=== PATIENT | male | born 1945 | race Caucasian/White ===

== ENCOUNTER 2017-06-02 05:30 | Observation (INO) | payer MEDICARE, MEDICAID, OTHER ==
[2017-06-02] MEDS ORDERED: Sodium Chloride 0.9% 1,000 ML IV ONE (05:31)
[2017-06-02] MEDS ORDERED: Famotidine 20 MG/2 ML SDV IVPUSH ONE (05:31)
[2017-06-02] MEDS ORDERED: Ondansetron 4 MG/2 ML SDV IVPUSH ONE (05:31)
[2017-06-02] MEDS ORDERED: Sodium Chloride 0.9% 5 ML Syringe FLUSH PRN ×2 (05:31→06:24)
--- NOTE | 2017-06-02 05:37 | EDM.PDOC ---
Addendum entered and electronically signed by Jayro Mccullough PA 06/02/17 06:33 : Please use ER note as admission H and P Original Note: ED HPI GENERAL MEDICAL PROBLEM - General Chief Complaint: Abdominal Pain Stated Complaint: Abdominal pain Time Seen by Provider: 06/02/17 05:30 Source of Information: Reports: Patient History Limitations: Reports: No Limitations - History of Present Illness INITIAL COMMENTS - FREE TEXT/NARRATIVE: 71 YO WM presents to ER with intractable vomiting x 2 hours with generalized abdominal pain. Pt reports he's had these symptoms previously and was told they were due to GERD. Pt denies any chest pain or shortness of breath. Pt denies any recent illnesses. Pt denies any dysuria or urinary frequency. Right Abdominal Pain Score (Numeric/FACES): 5 - Related Data Allergies Allergy/AdvReac Type Severity Reaction Status Date / Time amoxicillin [Amoxicillin] Allergy Nausea Verified 06/02/17 06:00 erythromycin base Allergy Nausea Verified 06/02/17 06:00 Home Meds: Home Meds Celecoxib 200 mg PO BID 01/12/16 [History] Losartan/Hydrochlorothiazide [Losartan-HCTZ 100-12.5 MG] 12.5 - 100 mg PO BEDTIME 01/12/16 [History] Metoprolol Succinate [Toprol XL] 25 mg PO DAILY 01/12/16 [History] Pantoprazole Sodium [Protonix] 40 mg PO DAILY 01/12/16 [History] Ranitidine HCl [Ranitidine] 150 mg PO BID 01/12/16 [History] Past Medical History HEENT History: Reports: Impaired Vision Cardiovascular History: Reports: Hypertension Respiratory History: Reports: None Gastrointestinal History: Reports: GERD Musculoskeletal History: Reports: Arthritis Psychiatric History: Reports: Developmental Delay, Other (See Below) - Infectious Disease History Infectious Disease History: Reports: Chicken Pox - Past Surgical History Musculoskeletal Surgical History: Reports: Other (See Below) Social & Family History - Tobacco Use Smoking Status *Q: Never Smoker Second Hand Smoke Exposure: No - Alcohol Use Days Per Week of Alcohol Use: 0 - Recreational Drug Use Recreational Drug Use: No Drug Use in Last 12 Months: No - Living Situation & Occupation Occupation: Retired ED ROS GENERAL - Review of Systems Review Of Systems: See Below Constitutional: Reports: No Symptoms HEENT: Reports: No Symptoms Respiratory: Reports: No Symptoms Cardiovascular: Reports: No Symptoms Endocrine: Reports: No Symptoms GI/Abdominal: Reports: Abdominal Pain, Nausea, Vomiting : Reports: No Symptoms Musculoskeletal: Reports: No Symptoms Skin: Reports: No Symptoms Neurological: Reports: No Symptoms Psychiatric: Reports: No Symptoms Hematologic/Lymphatic: Reports: No Symptoms Immunologic: Reports: No Symptoms ED EXAM, GI/ABD - Physical Exam Exam: See Below Exam Limited By: No Limitations General Appearance: Alert, WD/WN, No Apparent Distress Ears: Normal External Exam, Normal Canal, Hearing Grossly Normal, Normal TMs Nose: Normal Inspection, Normal Mucosa, No Blood Throat/Mouth: Normal Inspection, Normal Lips, Normal Teeth, Normal Gums, Normal Oropharynx, Normal Voice, No Airway Compromise Head: Atraumatic, Normocephalic Neck: Normal Inspection, Supple, Non-Tender, Full Range of Motion Respiratory/Chest: No Respiratory Distress, Lungs Clear, Normal Breath Sounds, No Accessory Muscle Use, Chest Non-Tender Cardiovascular: Normal Peripheral Pulses, No Edema, No Gallop, No JVD, No Murmur , No Rub, Irregularly Irregular GI/Abdominal Exam: Normal Bowel Sounds, Soft, No Organomegaly, No Abnormal Bruit , Tender (generalized) Back Exam: Normal Inspection, Full Range of Motion, NT Extremities: Normal Inspection, Normal Range of Motion, Non-Tender, Normal Capillary Refill, No Pedal Edema Neurological: Alert, Oriented, CN II-XII Intact, Normal Cognition, Normal Gait, Normal Reflexes, No Motor/Sensory Deficits Psychiatric: Normal Affect, Normal Mood Skin Exam: Warm, Dry, Intact, Normal Color, No Rash Lymphatic: No Adenopathy EKG INTERPRETATION EKG Date: 06/02/17 Time: 06:14 Rhythm: NSR Rate (Beats/Min): 108 [place]: Normal P-Wave: Present QRS: Normal ST-T: Normal QT: Normal Comparison: NA - No Prior EKG Course - Vital Signs Last Recorded V/S: Last Vital Signs Temp 35.9 C 06/02/17 05:50 Pulse 99 06/02/17 05:50 Resp 18 06/02/17 05:50 BP 119/75 06/02/17 05:50 Pulse Ox 90 L 06/02/17 05:50 - Orders/Labs/Meds Orders: Active Orders 24 hr Category Date Time Status Patient Status Manage Transfer [TRANSFER] Routine ADT 06/02/17 06:22 Ordered Patient Status [ADT] Routine ADT 06/02/17 06:24 Ordered EKG Documentation Completion [RC] ASDIRECTED Care 06/02/17 05:33 Active Oxygen Therapy [RC] PRN Care 06/02/17 06:24 Active Peripheral IV Care [RC] . DIRECTED Care 06/02/17 05:32 Active Peripheral IV Care [RC] . DIRECTED Care 06/02/17 06:25 Active Up With Assistance [RC] ASDIRECTED Care 06/02/17 06:24 Active VTE/DVT Education [RC] PER UNIT ROUTINE Care 06/02/17 06:24 Active Vital Signs [RC] Q4H Care 06/02/17 06:24 Active Clear Liquid Diet [DIET] Diet 06/02/17 Breakfast Active Abdomen 1V Upright [CR] Stat Exams 06/02/17 05:31 Ordered CBC WITH AUTO DIFF [HEME] AM Lab 06/03/17 05:11 Ordered COMPREHENSIVE METABOLIC PN,CMP [CHEM] AM Lab 06/03/17 05:11 Ordered UA W/MICROSCOPIC [URIN] Stat Lab 06/02/17 05:31 Uncollected Morphine Med 06/02/17 06:24 Active 2 mg IVPUSH Q2H PRN Ondansetron [Zofran] Med 06/02/17 06:24 Active 4 mg IV Q4H PRN Sodium Chloride 0.9% [Normal Saline] 1,000 ml Med 06/02/17 05:31 Active IV .BOLUS Sodium Chloride 0.9% [Normal Saline] 1,000 ml Med 06/02/17 06:30 Active IV ASDIRECTED Sodium Chloride 0.9% [Syrex Flush] Med 06/02/17 05:31 Active 5 ml FLUSH Q8HR PRN Sodium Chloride 0.9% [Syrex Flush] Med 06/02/17 06:24 Active 5 ml FLUSH Q8HR PRN Peripheral IV Insertion Adult [OM.PC] Routine Oth 06/02/17 05:31 Ordered Peripheral IV Insertion Adult [OM.PC] Routine Oth 06/02/17 06:24 Ordered Resuscitation Status Routine Resus Stat 06/02/17 06:24 Ordered EKG 12 Lead [EK] Routine Ther 06/02/17 05:33 Ordered Medication Orders Sodium Chloride (Normal Saline) 1,000 mls @ 999 mls/hr IV .BOLUS ONE Stop: 06/02/17 06:31 Sodium Chloride (Normal Saline) 1,000 mls @ 125 mls/hr IV ASDIRECTED PATIENCE Morphine Sulfate (Morphine) 2 mg IVPUSH Q2H PRN PRN Reason: Pain (severe 7-10) Ondansetron HCl (Zofran) 4 mg IV Q4H PRN PRN Reason: Nausea/Vomiting Sodium Chloride (Syrex Flush) 5 ml FLUSH Q8HR PRN PRN Reason: Keep Vein Open Sodium Chloride (Syrex Flush) 5 ml FLUSH Q8HR PRN PRN Reason: Keep Vein Open Labs: Laboratory Tests 06/02/17 06/02/17 Range/Units 05:32 05:32 WBC 13.0 H (5.0-10.0) 10^3/uL RBC 5.84 (4.50-6.00) 10^6/uL Hgb 18.0 H (13.0-17.0) g/dL Hct 53.2 H (40.0-52.0) % MCV 91.0 (82.0-92.0) fL MCH 30.8 (27.0-31.0) pg MCHC 33.9 (32.0-36.0) g/dL RDW 13.0 (11.5-14.5) % Plt Count 171 (150-300) 10^3/uL MPV 8.2 (7.4-10.4) fL Neut % (Auto) 93.2 H (50.0-70.0) % Lymph % (Auto) 3.1 L (20.0-40.0) % [place] % (Auto) 3.4 (2.0-8.0) % Eos % (Auto) 0.3 L (1.0-3.0) % Baso % (Auto) 0.0 (0.0-1.0) % Neut # (Auto) 12.2 H (2.5-7.0) 10^3/uL Lymph # (Auto) 0.4 L (1.0-4.0) 10^3/uL [place] # (Auto) 0.4 (0.1-0.8) 10^3/uL Eos # (Auto) 0.0 L (0.1-0.3) 10^3/uL Baso # (Auto) 0.0 (0.0-0.1) 10^3/uL Sodium 141 (136-145) mmol/L Potassium 3.5 (3.3-5.3) mmol/L Chloride 102 (98-115) mmol/L Carbon Dioxide 30.1 (21.0-32.0) mmol/L BUN 16 (6-25) mg/dL Creatinine 0.83 (0.51-1.17) mg/dL Est Cr Clr Drug Dosing 88.20 mL/min Estimated GFR (MDRD) > 60 mL/min Glucose 176 H (70-110) mg/dL Calcium 9.4 (8.7-10.3) mg/dL Total Bilirubin 1.9 H (0.2-1.0) mg/dL AST 16 (15-37) U/L ALT 23 (12-78) U/L Alkaline Phosphatase 77 (46-116) IU/L Total Protein 7.7 (6.4-8.2) g/dL Albumin 3.87 (3.00-4.80) g/dL Lipase 72 L (73-393) U/L Meds: Medications Generic Name Dose Route Start Last Admin Trade Name Freq PRN Reason Stop Dose Admin Sodium Chloride 1,000 mls @ 999 mls/hr 06/02/17 05:31 Normal Saline IV 06/02/17 06:31 .BOLUS ONE Sodium Chloride 1,000 mls @ 125 mls/hr 06/02/17 06:30 Normal Saline IV ASDIRECTED PATIENCE Morphine Sulfate 2 mg 06/02/17 06:24 Morphine IVPUSH Q2H PRN Pain (severe 7-10) Ondansetron HCl 4 mg 06/02/17 06:24 Zofran IV Q4H PRN Nausea/Vomiting Sodium Chloride 5 ml 06/02/17 05:31 Syrex Flush FLUSH Q8HR PRN Keep Vein Open Sodium Chloride 5 ml 06/02/17 06:24 Syrex Flush FLUSH Q8HR PRN Keep Vein Open Discontinued Medications Generic Name Dose Route Start Last Admin Trade Name Freq PRN Reason Stop Dose Admin Famotidine 20 mg 06/02/17 05:31 Pepcid IVPUSH 06/02/17 05:32 ONETIME ONE Morphine Sulfate 4 mg 06/02/17 06:16 Morphine IVPUSH 06/02/17 06:17 ONETIME ONE Ondansetron HCl 4 mg 06/02/17 05:31 Zofran IVPUSH 06/02/17 05:32 ONETIME ONE - Radiology Interpretation Free Text/Narrative:: Abd series- nonspecific bowel gas pattern; NAD Departure - Departure Time of Disposition: 06:29 Disposition: Refer to Observation Condition: Fair Clinical Impression: Vomiting Qualifiers: Vomiting Intractability: unspecified Nausea presence: with nausea Abdominal pain Qualifiers: Abdominal location: generalized Qualified Code(s): R10.84 - Generalized abdominal pain - Discharge Information Forms: ED Department Discharge - My Orders Last 24 Hours: My Active Orders 06/02/17 05:31 Abdomen 1V Upright [CR] Stat UA W/MICROSCOPIC [URIN] Stat Sodium Chloride 0.9% [Normal Saline] 1,000 ml IV .BOLUS Sodium Chloride 0.9% [Syrex Flush] 5 ml FLUSH Q8HR PRN Peripheral IV Insertion Adult [OM.PC] Routine 06/02/17 05:32 Peripheral IV Care [RC] . DIRECTED 06/02/17 05:33 EKG Documentation Completion [RC] ASDIRECTED EKG 12 Lead [EK] Routine 06/02/17 06:22 Patient Status Manage Transfer [TRANSFER] Routine 06/02/17 06:24 Patient Status [ADT] Routine Oxygen Therapy [RC] PRN Up With Assistance [RC] ASDIRECTED VTE/DVT Education [RC] PER UNIT ROUTINE Vital Signs [RC] Q4H Morphine 2 mg IVPUSH Q2H PRN Ondansetron [Zofran] 4 mg IV Q4H PRN Sodium Chloride 0.9% [Syrex Flush] 5 ml FLUSH Q8HR PRN Peripheral IV Insertion Adult [OM.PC] Routine Resuscitation Status Routine 06/02/17 06:25 Peripheral IV Care [RC] . DIRECTED 06/02/17 06:30 Sodium Chloride 0.9% [Normal Saline] 1,000 ml IV ASDIRECTED 06/02/17 Breakfast Clear Liquid Diet [DIET] 06/03/17 05:11 CBC WITH AUTO DIFF [HEME] AM COMPREHENSIVE METABOLIC PN,CMP [CHEM] AM - Assessment/Plan Last 24 Hours: My Active Orders 06/02/17 05:31 Abdomen 1V Upright [CR] Stat UA W/MICROSCOPIC [URIN] Stat Sodium Chloride 0.9% [Normal Saline] 1,000 ml IV .BOLUS Sodium Chloride 0.9% [Syrex Flush] 5 ml FLUSH Q8HR PRN Peripheral IV Insertion Adult [OM.PC] Routine 06/02/17 05:32 Peripheral IV Care [RC] . DIRECTED 06/02/17 05:33 EKG Documentation Completion [RC] ASDIRECTED EKG 12 Lead [EK] Routine 06/02/17 06:22 Patient Status Manage Transfer [TRANSFER] Routine 06/02/17 06:24 Patient Status [ADT] Routine Oxygen Therapy [RC] PRN Up With Assistance [RC] ASDIRECTED VTE/DVT Education [RC] PER UNIT ROUTINE Vital Signs [RC] Q4H Morphine 2 mg IVPUSH Q2H PRN Ondansetron [Zofran] 4 mg IV Q4H PRN Sodium Chloride 0.9% [Syrex Flush] 5 ml FLUSH Q8HR PRN Peripheral IV Insertion Adult [OM.PC] Routine Resuscitation Status Routine 06/02/17 06:25 Peripheral IV Care [RC] . DIRECTED 06/02/17 06:30 Sodium Chloride 0.9% [Normal Saline] 1,000 ml IV ASDIRECTED 06/02/17 Breakfast Clear Liquid Diet [DIET] 06/03/17 05:11 CBC WITH AUTO DIFF [HEME] AM COMPREHENSIVE METABOLIC PN,CMP [CHEM] AM Assessment:: 1, generalized abdominal pain 2. vomiting Plan: 1. admit for 23 hour obs 2. zofran 4mg IV 3. morphine PRN for pain 4. IV fluids 5. PT eval due to inability to ambulate 6. supportive care
[2017-06-02 06:02] LABS: CHLORIDE,CL 102 mmol/L (98-115); SODIUM,NA 141 mmol/L (136-145)
[2017-06-02] MEDS ORDERED: Morphine 4 MG/ML Syringe IVPUSH ONE (06:16)
[2017-06-02] MEDS ORDERED: Morphine 2 MG/ML Syringe IVPUSH PRN (06:24)
[2017-06-02] MEDS ORDERED: Sodium Chloride 0.9% 1,000 ML IV SCH (06:30)
[2017-06-02] MEDS: Sodium Chloride 0.9% 1,000 ML IV SCH ×2 (08:00→16:26)
[2017-06-02] MEDS: Ondansetron 4 MG/2 ML SDV IV PRN ×2 (09:58→17:39)
[2017-06-02] MEDS: Pantoprazole 40 MG Tab.CR PO SCH (11:14)
[2017-06-02] MEDS: Metoprolol Succinate 25 MG Tab.ER PO SCH (11:14)
[2017-06-02] MEDS: Losartan 50 MG Tab PO SCH (11:15)
[2017-06-02] MEDS: Hydrochlorothiazide 12.5 MG Cap PO SCH (11:15)
[2017-06-02] MEDS: Celecoxib 100 MG Cap PO SCH (20:46)
[2017-06-02] MEDS: Aluminum Hydroxide/Magnesium Hydroxide/Simethicone Susp 30 ML Cup PO PRN (20:47)
[2017-06-03] MEDS: Ondansetron 4 MG/2 ML SDV IV PRN ×3 (00:12→20:05)
[2017-06-03] MEDS: Sodium Chloride 0.9% 1,000 ML IV SCH ×2 (00:12→07:51)
[2017-06-03] MEDS: Pantoprazole 40 MG Tab.CR PO SCH ×2 (06:01→17:32)
--- NOTE | 2017-06-03 08:06 | PN ---
06/02/2017PATIENT NAME: DANETTE COLEMAN This is a 71-year-old white male, who presented to the emergency room early this morning with intractable vomiting x2 hours with generalized abdominal pain. He has had these symptoms in the past and has been told that they were related to gastroesophageal reflux disease. The patient was admitted for observation and IV fluids. He is receiving normal saline at 100 mL/h. He has been treated with Zofran 4 mg IV with some relief. He is also receiving morphine for pain. 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 Pertinent lab data from the emergency room shows a white count of 13,000, hemoglobin and hematocrit 18 and 53.2 respectively. Chemistry profile was normal with the exception of elevated lipase of 72, total bilirubin of 1.9, and glucose of 176. BUN and creatinine were normal with a GFR over 60. UA showed greater than 160 ketones and some occult blood. Etiology unclear. PHYSICAL EXAMINATION: VITAL SIGNS: Temp is 97.7, pulse 101, respirations 14, blood pressure 136/78, O2 saturation is 92% on room air. SKIN: Warm and dry to touch. HEART AND LUNGS: Normal. ABDOMEN: He does have a distended obese abdomen with a large abdominal mass question hernia. EXTREMITIES: No pedal edema. IMPRESSION: Intractable vomiting. He will be treated with IV fluids, given antiemetics and pain medication. If he has improved by tomorrow, he could possibly be discharged back home. I have discussed my findings with Dr. Aida Jay, who was previously aware of the patient's admission and she agrees. /[id number]/MODL
[2017-06-03 08:08] LABS: CHLORIDE,CL 105 mmol/L (98-115); SODIUM,NA 142 mmol/L (136-145)
[2017-06-03] MEDS ORDERED: GI Cocktail 45 ML BOTTLE PO ONE (08:19)
[2017-06-03] MEDS ORDERED: Sodium Chloride 0.9% 5 ML Syringe FLUSH PRN (08:19)
--- NOTE | 2017-06-03 08:26 | PCM.PN ---
- General Info Date of Service: 06/03/17 Admission Dx/Problem (Free Text): Abdominal pain with vomiting. - Review of Systems Systems Review Comment:: Eder is seen today on hospital rounds. He is in observation status having been admitted yesterday morning for abdominal pain with nausea and vomiting. He believes this is all related to his acid reflux. He feels better this morning. He has been on clear liquids and would like to advance his diet. He has no diarrhea. He still has some mild abdominal pain. He has been "walking slowly" around but is getting around with a walker. He has not yet been evaluated by PT. - Patient Data Vitals - most recent: Last Vital Signs Temp 99.6 F 06/03/17 06:40 Pulse 82 06/03/17 06:40 Resp 24 H 06/03/17 06:40 BP 119/78 06/03/17 06:40 Pulse Ox 90 L 06/03/17 06:40 Weight - most recent: 292 lb 12.8 oz I&O - last 24 hours: Intake & Output 06/02/17 06/03/17 06/03/17 22:59 06:59 14:59 Intake Total 1749 150 Output Total 250 200 Balance 1499 -50 Lab Results last 24 hrs: Laboratory Results - last 24 hr 06/03/17 06/03/17 Range/Units 07:26 07:26 WBC 6.1 (5.0-10.0) 10^3/uL RBC 5.31 (4.50-6.00) 10^6/uL Hgb 16.4 (13.0-17.0) g/dL Hct 48.1 (40.0-52.0) % MCV 90.7 (82.0-92.0) fL MCH 30.8 (27.0-31.0) pg MCHC 34.0 (32.0-36.0) g/dL RDW 13.2 (11.5-14.5) % Plt Count 179 (150-300) 10^3/uL MPV 8.2 (7.4-10.4) fL Neut % (Auto) 75.6 H (50.0-70.0) % Lymph % (Auto) 6.9 L (20.0-40.0) % [place] % (Auto) 15.0 H (2.0-8.0) % Eos % (Auto) 2.0 (1.0-3.0) % Baso % (Auto) 0.5 (0.0-1.0) % Neut # (Auto) 4.7 (2.5-7.0) 10^3/uL Lymph # (Auto) 0.4 L (1.0-4.0) 10^3/uL [place] # (Auto) 0.9 H (0.1-0.8) 10^3/uL Eos # (Auto) 0.1 (0.1-0.3) 10^3/uL Baso # (Auto) 0.0 (0.0-0.1) 10^3/uL Sodium 142 (136-145) mmol/L Potassium 3.6 (3.3-5.3) mmol/L Chloride 105 (98-115) mmol/L Carbon Dioxide 32.5 H (21.0-32.0) mmol/L BUN 13 (6-25) mg/dL Creatinine 0.84 (0.51-1.17) mg/dL Est Cr Clr Drug Dosing 87.15 mL/min Estimated GFR (MDRD) > 60 mL/min Glucose 122 H (70-110) mg/dL Calcium 8.0 L (8.7-10.3) mg/dL Total Bilirubin 2.1 H (0.2-1.0) mg/dL AST 12 L (15-37) U/L ALT 24 (12-78) U/L Alkaline Phosphatase 56 (46-116) IU/L Total Protein 6.4 (6.4-8.2) g/dL Albumin 3.08 (3.00-4.80) g/dL Med Orders - Current: Current Medications Al Hydroxide/Mg Hydroxide (Mag-Al Plus) 30 ml PO QID PRN PRN Reason: Heartburn Last Admin: 06/02/17 20:47 Dose: 30 ml Al Hydroxide/Mg Hydroxide (Gi Cocktail) 45 ml PO ONETIME ONE Stop: 06/03/17 08:20 Celecoxib (Celebrex) 200 mg PO BID PATIENCE Last Admin: 06/02/17 20:46 Dose: 200 mg Hydrochlorothiazide (Hydrochlorothiazide) 12.5 mg PO DAILY PATIENCE Last Admin: 06/02/17 11:15 Dose: 12.5 mg Losartan Potassium (Cozaar) 100 mg PO DAILY [facility] Last Admin: 06/02/17 11:15 Dose: 100 mg Metoprolol Succinate (Toprol Xl) 25 mg PO DAILY [facility] Last Admin: 06/02/17 11:14 Dose: 25 mg Morphine Sulfate (Morphine) 2 mg IVPUSH Q2H PRN PRN Reason: Pain (severe 7-10) Ondansetron HCl (Zofran) 4 mg IV Q4H PRN PRN Reason: Nausea/Vomiting Last Admin: 06/03/17 05:59 Dose: 4 mg Pantoprazole Sodium (Protonix) 40 mg PO ACBREAKFAST [facility] Last Admin: 06/03/17 06:01 Dose: 40 mg Ranitidine HCl (Zantac) 150 mg PO BIDAC [facility] Last Admin: 06/03/17 05:59 Dose: 150 mg Sodium Chloride (Syrex Flush) 5 ml FLUSH Q8HR PRN PRN Reason: Keep Vein Open Discontinued Medications Famotidine (Pepcid) 20 mg IVPUSH ONETIME ONE Stop: 06/02/17 05:32 Last Admin: 06/02/17 06:00 Dose: 20 mg Sodium Chloride (Normal Saline) 1,000 mls @ 999 mls/hr IV .BOLUS ONE Stop: 06/02/17 06:31 Last Admin: 06/02/17 06:00 Dose: 999 mls/hr Sodium Chloride (Normal Saline) 1,000 mls @ 125 mls/hr IV ASDIRECTED [facility] Sodium Chloride (Normal Saline) 1,000 mls @ 125 mls/hr IV ASDIRECTED [facility] Last Admin: 06/03/17 07:51 Dose: 125 mls/hr Morphine Sulfate (Morphine) 4 mg IVPUSH ONETIME ONE Stop: 06/02/17 06:17 Last Admin: 06/02/17 06:20 Dose: 4 mg Ondansetron HCl (Zofran) 4 mg IVPUSH ONETIME ONE Stop: 06/02/17 05:32 Last Admin: 06/02/17 05:45 Dose: 4 mg Sodium Chloride (Syrex Flush) 5 ml FLUSH Q8HR PRN PRN Reason: Keep Vein Open Sodium Chloride (Syrex Flush) 5 ml FLUSH Q8HR PRN PRN Reason: Keep Vein Open - Exam General: alert, oriented, cooperative, no acute distress Lungs: Clear to Auscultation, Normal Respiratory Effort Cardiovascular: Regular Rate, Regular Rhythm, No Murmurs GI/Abdominal Exam: Normal Bowel Sounds Extremities: No Pedal Edema - Problem List & Annotations (1) Acid reflux SNOMED Code(s): 333861331 Code(s): K21.9 - GASTRO-ESOPHAGEAL REFLUX DISEASE WITHOUT ESOPHAGITIS Status: Acute Current Visit: Yes (2) Abdominal pain SNOMED Code(s): 89984268 Code(s): R10.9 - UNSPECIFIED ABDOMINAL PAIN Status: Acute Current Visit: Yes Qualifiers: Abdominal location: generalized Qualified Code(s): R10.84 - Generalized abdominal pain (3) Vomiting SNOMED Code(s): 680331020 Code(s): R11.10 - VOMITING, UNSPECIFIED Status: Acute Current Visit: Yes Qualifiers: Vomiting Intractability: unspecified Nausea presence: with nausea (4) Weakness of both legs SNOMED Code(s): 4748087 Code(s): M62.81 - MUSCLE WEAKNESS (GENERALIZED) Status: Acute Current Visit: No - Problem List Review Problem List Initiated/Reviewed/Updated: Yes - My Orders Last 24 Hours: My Active Orders 06/02/17 10:44 PT Evaluation and Treatment [CONS] Routine 06/02/17 11:00 Hydrochlorothiazide 12.5 mg PO DAILY Losartan [Cozaar] 100 mg PO DAILY Metoprolol Succinate [Toprol XL] 25 mg PO DAILY 06/02/17 11:30 Pantoprazole [ProTONIX] 40 mg PO ACBREAKFAST Ranitidine [Zantac] 150 mg PO BIDAC 06/02/17 19:25 Alum Hydrox/Mag Hydrox/Simeth [Mag-Al Plus] 30 ml PO QID PRN 06/02/17 21:00 Celecoxib [CeleBREX] 200 mg PO BID 06/03/17 08:19 Chest 2V [CR] Routine GI Cocktail 45 ml PO ONETIME ONE Sodium Chloride 0.9% [Syrex Flush] 5 ml FLUSH Q8HR PRN Convert IV to Saline Lock [OM.PC] Routine 06/03/17 Lunch Regular Diet [DIET] - Plan Plan:: 1. GI cocktail today to see if this helps. 2. Advance diet to regular. 3. PT eval and treat. 4. Anticipate one additional day in the hospital with probable discharge to home tomorrow.
[2017-06-03] MEDS: Celecoxib 100 MG Cap PO SCH (08:53)
[2017-06-03] MEDS: Losartan 50 MG Tab PO SCH (08:53)
[2017-06-03] MEDS: Hydrochlorothiazide 12.5 MG Cap PO SCH (08:54)
[2017-06-03] MEDS: Metoprolol Succinate 25 MG Tab.ER PO SCH (08:54)
[2017-06-03] MEDS: Acetaminophen 500 MG Tab PO PRN (10:51)
[2017-06-03] MEDS: Aluminum Hydroxide/Magnesium Hydroxide/Simethicone Susp 30 ML Cup PO PRN (14:55)
[2017-06-04] MEDS: Acetaminophen 500 MG Tab PO PRN (02:53)
[2017-06-04] MEDS: Pantoprazole 40 MG Tab.CR PO SCH (06:26)
[2017-06-04 06:59] VITALS: BP 118/72
[2017-06-04] MEDS ORDERED: Magnesium Hydroxide 400 MG/5 ML Susp 30 ML Cup PO PRN (07:30)
[2017-06-04] MEDS: Aluminum Hydroxide/Magnesium Hydroxide/Simethicone Susp 30 ML Cup PO PRN (08:28)
[2017-06-04] MEDS: Losartan 50 MG Tab PO SCH (08:30)
[2017-06-04] MEDS: Metoprolol Succinate 25 MG Tab.ER PO SCH (08:30)
[2017-06-04] MEDS: Hydrochlorothiazide 12.5 MG Cap PO SCH (08:31)
[2017-06-04 08:43] LABS: CHLORIDE,CL 103 mmol/L (98-115); SODIUM,NA 139 mmol/L (136-145)
[2017-06-04] MEDS ORDERED: Celecoxib 100 MG Cap PO SCH (09:00)
--- NOTE | 2017-06-04 09:42 | PCM.DCSUM1 ---
Discharge Summary - Hospital Course Free Text/Narrative:: Eder is being discharged from observation today. He was admitted on 06/02/17 with abdominal pain and vomiting. CT abdomen/pelvis was negative with the exception of a known abdominal wall mass (present for many years, has been worked up and benign) and question of a small pleural effusion. CXR was done and confirmed small right pleural effusion, patient is asymptomatic from this. Eder felt that his symptoms were his acid reflux. He was given a GI cocktail which did not help. His protonix was increased to 40 mg PO BID from one daily and his celebrex was changed from 200 mg PO BID to 200 mg PO once daily to help minimize stomach issues. He has been passing gas as well as having had bowel movements. He was noted to have elevated BG on fasting labs and an A1C was done which was 5.1. He also had a troponin checked to be sure this was not cardiac related and this was negative. Eder does not want to go home. He states "I just don't feel well" but he really enjoys the care he gets here. He was asking if he could have home health but PT momolamar was consistent with independent cares and he does not qualify. He asked if he could have someone come in and give him a bath "for a few weeks" but he was counseled he does not need this service due to his independence with cares. He also stated that he talked with the president of our hospital about finding funding to build him a "handicap ramp". I am unaware of this. Eder will be discharged to home with the medication changes noted above. Recommend follow-up in the clinic in 2 weeks. He had some ketonuria on his admission UA. This should be repeated as an outpatient. He was counseled about a diet that avoids triggering stomach acid. - Discharge Data Discharge Date: 06/04/17 Discharge Disposition: Home, Self-Care 01 Condition: Good - Discharge Diagnosis/Problem(s) (1) Acid reflux SNOMED Code(s): 239086852 ICD Code: K21.9 - GASTRO-ESOPHAGEAL REFLUX DISEASE WITHOUT ESOPHAGITIS Status: Acute Current Visit: Yes (2) Abdominal pain SNOMED Code(s): 21449569 ICD Code: R10.9 - UNSPECIFIED ABDOMINAL PAIN Status: Acute Current Visit : Yes Qualifiers: Abdominal location: generalized Qualified Code(s): R10.84 - Generalized abdominal pain (3) Vomiting SNOMED Code(s): 163228014 ICD Code: R11.10 - VOMITING, UNSPECIFIED Status: Acute Current Visit: Yes Qualifiers: Vomiting Intractability: unspecified Nausea presence: with nausea (4) Weakness of both legs SNOMED Code(s): 3778151 ICD Code: M62.81 - MUSCLE WEAKNESS (GENERALIZED) Status: Acute Current Visit: No - Patient Summary/Data Consults: Consultations 06/02/17 10:44 PT Evaluation and Treatment [CONS] Routine - Patient Instructions Diet: Regular Diet as Tolerated Activity: As Tolerated, Rest and Relax Today Showering/Bathing: May Shower Notify Provider of: Nausea and/or Vomiting - Discharge Plan Prescriptions/Med Rec: Pantoprazole [ProTONIX] 40 mg PO BIDAC 30 Days Home Medications: Home Meds Losartan/Hydrochlorothiazide [Losartan-HCTZ 100-12.5 MG] 1 tab PO DAILY [History] Metoprolol Succinate [Toprol XL] 25 mg PO DAILY 01/12/16 [History] Ranitidine HCl [Ranitidine] 150 mg PO BID 01/12/16 [History] Celecoxib [CeleBREX] 200 mg PO DAILY cap 06/04/17 [Rx] Pantoprazole [ProTONIX] 40 mg PO BIDAC 30 Days 06/04/17 [Rx] Referrals: Aida Dunacn MD [Primary Care Provider] - - Discharge Summary/Plan Comment DC Time >30 min.: No - General Info Date of Service: 06/04/17 Admission Dx/Problem (Free Text: Abdominal pain with vomiting. - Review of Systems Systems Review Comment: 10 point ROS obtained, all pertinent positives are listed in the HPI, all other systems are negative. - Patient Data Vitals - Most Recent: Last Vital Signs Temp 98.1 F 06/04/17 06:58 Pulse 79 06/04/17 08:30 Resp 20 06/04/17 06:58 BP 118/72 06/04/17 08:30 Pulse Ox 92 L 06/04/17 06:58 Weight - Most Recent: 292 lb 12.8 oz I&O - Last 24 hours: Intake & Output 06/03/17 06/04/17 06/04/17 22:59 06:59 14:59 Intake Total 320 250 Output Total 200 400 Balance 120 -150 Lab Results - Last 24 hrs: Laboratory Results - last 24 hr 06/03/17 06/04/17 06/04/17 Range/Units 14:30 08:10 08:10 WBC 4.0 L (5.0-10.0) 10^3/uL RBC 5.20 (4.50-6.00) 10^6/uL Hgb 15.8 (13.0-17.0) g/dL Hct 46.2 (40.0-52.0) % MCV 89.0 (82.0-92.0) fL MCH 30.4 (27.0-31.0) pg MCHC 34.2 (32.0-36.0) g/dL RDW 12.9 (11.5-14.5) % Plt Count 183 (150-300) 10^3/uL MPV 8.2 (7.4-10.4) fL Neut % (Auto) 62.0 (50.0-70.0) % Lymph % (Auto) 13.0 L (20.0-40.0) % Story % (Auto) 20.8 H (2.0-8.0) % Eos % (Auto) 3.5 H (1.0-3.0) % Baso % (Auto) 0.7 (0.0-1.0) % Neut # (Auto) 2.6 (2.5-7.0) 10^3/uL Lymph # (Auto) 0.5 L (1.0-4.0) 10^3/uL Story # (Auto) 0.8 (0.1-0.8) 10^3/uL Eos # (Auto) 0.1 (0.1-0.3) 10^3/uL Baso # (Auto) 0.0 (0.0-0.1) 10^3/uL Sodium 139 (136-145) mmol/L Potassium 3.7 (3.3-5.3) mmol/L Chloride 103 (98-115) mmol/L Carbon Dioxide 29.5 (21.0-32.0) mmol/L BUN 15 (6-25) mg/dL Creatinine 0.85 (0.51-1.17) mg/dL Est Cr Clr Drug Dosing 86.13 mL/min Estimated GFR (MDRD) > 60 mL/min Glucose 125 H (70-110) mg/dL Hemoglobin A1c 5.1 (4.3-5.7) % Calcium 8.1 L (8.7-10.3) mg/dL Troponin I 0.04 (0.00-0.070) ng/mL Med Orders - Current: Current Medications Acetaminophen (Tylenol Extra Strength) 500 mg PO Q6H PRN PRN Reason: Pain Last Admin: 06/04/17 02:53 Dose: 500 mg Al Hydroxide/Mg Hydroxide (Mag-Al Plus) 30 ml PO QID PRN PRN Reason: Heartburn Last Admin: 06/04/17 08:28 Dose: 30 ml Celecoxib (Celebrex) 200 mg PO DAILY [facility] Last Admin: 06/04/17 08:30 Dose: 200 mg Hydrochlorothiazide (Hydrochlorothiazide) 12.5 mg PO DAILY [facility] Last Admin: 06/04/17 08:31 Dose: 12.5 mg Losartan Potassium (Cozaar) 100 mg PO DAILY [facility] Last Admin: 06/04/17 08:30 Dose: 100 mg Magnesium Hydroxide (Milk Of Magnesia) 30 ml PO DAILY PRN PRN Reason: Constipation Last Admin: 06/04/17 08:28 Dose: 30 ml Metoprolol Succinate (Toprol Xl) 25 mg PO DAILY [facility] Last Admin: 06/04/17 08:30 Dose: 25 mg Ondansetron HCl (Zofran) 4 mg IV Q4H PRN PRN Reason: Nausea/Vomiting Last Admin: 06/03/17 20:05 Dose: 4 mg Pantoprazole Sodium (Protonix) 40 mg PO BIDAC [facility] Last Admin: 06/04/17 06:26 Dose: 40 mg Ranitidine HCl (Zantac) 150 mg PO BIDAC [facility] Last Admin: 06/04/17 06:26 Dose: 150 mg Sodium Chloride (Syrex Flush) 5 ml FLUSH Q8HR PRN PRN Reason: Keep Vein Open Last Admin: 06/03/17 20:05 Dose: 5 ml Discontinued Medications Al Hydroxide/Mg Hydroxide (Gi Cocktail) 45 ml PO ONETIME ONE Stop: 06/03/17 08:20 Last Admin: 06/03/17 08:55 Dose: 45 ml Celecoxib (Celebrex) 200 mg PO BID [facility] Last Admin: 06/03/17 08:53 Dose: 200 mg Famotidine (Pepcid) 20 mg IVPUSH ONETIME ONE Stop: 06/02/17 05:32 Last Admin: 06/02/17 06:00 Dose: 20 mg Sodium Chloride (Normal Saline) 1,000 mls @ 999 mls/hr IV .BOLUS ONE Stop: 06/02/17 06:31 Last Admin: 06/02/17 06:00 Dose: 999 mls/hr Sodium Chloride (Normal Saline) 1,000 mls @ 125 mls/hr IV ASDIRECTED PATIENCE Sodium Chloride (Normal Saline) 1,000 mls @ 125 mls/hr IV ASDIRECTED [facility] Last Admin: 06/03/17 07:51 Dose: 125 mls/hr Morphine Sulfate (Morphine) 4 mg IVPUSH ONETIME ONE Stop: 06/02/17 06:17 Last Admin: 06/02/17 06:20 Dose: 4 mg Morphine Sulfate (Morphine) 2 mg IVPUSH Q2H PRN PRN Reason: Pain (severe 7-10) Ondansetron HCl (Zofran) 4 mg IVPUSH ONETIME ONE Stop: 06/02/17 05:32 Last Admin: 06/02/17 05:45 Dose: 4 mg Pantoprazole Sodium (Protonix) 40 mg PO ACBREAKFAST [facility] Last Admin: 06/03/17 06:01 Dose: 40 mg Sodium Chloride (Syrex Flush) 5 ml FLUSH Q8HR PRN PRN Reason: Keep Vein Open Sodium Chloride (Syrex Flush) 5 ml FLUSH Q8HR PRN PRN Reason: Keep Vein Open - Exam General: Reports: alert, oriented, cooperative, no acute distress Lungs: Reports: Clear to Auscultation, Normal Respiratory Effort Cardiovascular: Reports: Regular Rate, Regular Rhythm, No Murmurs GI/Abdominal Exam: Normal Bowel Sounds, Soft, Non-Tender, Other (Right sided abdominal mass, consistent with previous abdominal examinations. Soft.) Extremities: No Pedal Edema *Q Meaningful Use (DIS) - VTE *Q VTE Criteria *Q: - Stroke *Q Stroke Criteria *Q: - AMI *Q AMI Criteria *Q:
[2017-06-04] MEDS ORDERED: Ondansetron 4 MG Tab.DIS PO ONE (11:59)
== END 2017-06-04 16:10 | disposition home or self-care (01) ==
LOC: KA.ED 05:30 → KA.MS 07:15
PROVIDERS: ADMIT Physician Assistant Medical; ATTEND Internal Medicine
DX: K21.9 Gastro-esophageal reflux disease without esophagitis (principal); R10.84 Generalized abdominal pain; R11.10 Vomiting, unspecified; M62.81 Muscle weakness (generalized); I10 Essential (primary) hypertension; Z88.1 Allergy status to other antibiotic agents; Z79.899 Other long term (current) drug therapy
CPT/HCPCS: 36415; 71020; 74000; 80048; 80053; 81001; 83036; 83690; 84484; 85025; 96361; 96374; 96375; 97162; 99285; A9270; J2270; J2405; J7030; 93005; 96376; 99220; G0378; S0028

== ENCOUNTER 2017-07-06 05:14 | Emergency (ER) | payer MEDICARE, MEDICAID, OTHER ==
[2017-07-06] MEDS ORDERED: Ondansetron 4 MG Tab.DIS PO ONE (05:26)
[2017-07-06] MEDS ORDERED: GI Cocktail 45 ML BOTTLE PO ONE (05:26)
[2017-07-06] MEDS ORDERED: Ondansetron 4 MG Tab.DIS ONE (05:28)
[2017-07-06] MEDS ORDERED: GI Cocktail 45 ML BOTTLE ONE (05:29)
[2017-07-06 05:37] VITALS: BP 121/76
[2017-07-06] MEDS ORDERED: Metoclopramide 10 MG/2 ML SDV IM ONE (05:59)
--- NOTE | 2017-07-06 06:05 | EDM.PDOC ---
ED HPI GENERAL MEDICAL PROBLEM - General Chief Complaint: General Stated Complaint: nausea/ reflux Time Seen by Provider: 07/06/17 05:55 Source of Information: Reports: Patient, EMS Notes Reviewed History Limitations: Reports: No Limitations - History of Present Illness INITIAL COMMENTS - FREE TEXT/NARRATIVE: PT STATES HE WOKE UP AT 0300 TODAY WITH ACID REFLUX AND ABDOMINAL PAIN/BURNING. RECENT H/O SAME ONE MONTH AGO AND WAS ADMITTED. WORK UP WAS NEGATIVE. CURRENTLY ON 2 ANTACIDS AND TAKES BOTH 2 X PER DAY. HAD [employer]IX [employer] DINNER AT 1800 AND ATE POP TART JUST PRIOR TO BEDTIME AT 2200. DENIES CP, SOB, FEVER, BOWEL CHANGES , BLOOD IN STOOL, DYSURIA, OR TESTICULAR PAIN. Onset: Today Onset Date: 07/06/17 Onset Time: 03:00 Duration: Improving Location: Reports: Abdomen Quality: Reports: Burning Severity: Mild Improves with: Reports: None Worsens with: Reports: None Associated Symptoms: Reports: No Other Symptoms Treatments JINGLE WRITER: Reports: Other Medication(s) (PEPCID) - Related Data Allergies Allergy/AdvReac Type Severity Reaction Status Date / Time amoxicillin [Amoxicillin] Allergy Nausea Verified 06/02/17 06:00 erythromycin base Allergy Nausea Verified 06/02/17 06:00 Home Meds: Home Meds Losartan/Hydrochlorothiazide [Losartan-HCTZ 100-12.5 MG] 1 tab PO DAILY [History] Metoprolol Succinate [Toprol XL] 25 mg PO DAILY 01/12/16 [History] Ranitidine HCl [Ranitidine] 150 mg PO BID 01/12/16 [History] Celecoxib [CeleBREX] 200 mg PO DAILY cap 06/04/17 [Rx] Pantoprazole [ProTONIX] 40 mg PO BIDAC 30 Days 06/04/17 [Rx] Past Medical History HEENT History: Reports: Hard of Hearing, Impaired Vision Cardiovascular History: Reports: Hypertension Respiratory History: Reports: None Gastrointestinal History: Reports: Gastritis, GERD, Other (See Below) Other Gastrointestinal History: large abdominal hernia Genitourinary History: Reports: Urinary Incontinence Musculoskeletal History: Reports: Arthritis Neurological History: Reports: Brain Injury Psychiatric History: Reports: Developmental Delay - Infectious Disease History Infectious Disease History: Reports: Chicken Pox - Past Surgical History GI Surgical History: Reports: Cholecystectomy Musculoskeletal Surgical History: Reports: Other (See Below) Other Musculoskeletal Surgeries/Procedures:: lef fracture Social & Family History - Tobacco Use Smoking Status *Q: Never Smoker Second Hand Smoke Exposure: No - Caffeine Use Caffeine Use: Reports: None - Alcohol Use Days Per Week of Alcohol Use: 0 - Recreational Drug Use Recreational Drug Use: No Drug Use in Last 12 Months: No - Living Situation & Occupation Occupation: Retired ED ROS GENERAL - Review of Systems Review Of Systems: ROS reveals no pertinent complaints other than HPI. Constitutional: Reports: No Symptoms HEENT: Reports: No Symptoms Respiratory: Reports: No Symptoms Cardiovascular: Reports: No Symptoms Endocrine: Reports: No Symptoms GI/Abdominal: Reports: Abdominal Pain : Reports: No Symptoms Musculoskeletal: Reports: No Symptoms Skin: Reports: No Symptoms Neurological: Reports: No Symptoms Psychiatric: Reports: No Symptoms Hematologic/Lymphatic: Reports: No Symptoms Immunologic: Reports: No Symptoms ED EXAM, GENERAL - Physical Exam Exam: See Below Exam Limited By: No Limitations General Appearance: Alert, WD/WN, No Apparent Distress Nose: Normal Inspection, Normal Mucosa, No Blood Throat/Mouth: Normal Inspection, Normal Oropharynx, No Airway Compromise Head: Atraumatic, Normocephalic Neck: Normal Inspection, Supple, Non-Tender Respiratory/Chest: No Respiratory Distress, Lungs Clear, Normal Breath Sounds, No Accessory Muscle Use, Chest Non-Tender Cardiovascular: Regular Rate, Rhythm, No Murmur GI/Abdominal: Normal Bowel Sounds, Soft, Non-Tender, Other (OBESE). No: Guarding, Rigid, Rebound, Abnormal Bowel Sounds, Hernia Back Exam: Normal Inspection. No: CVA Tenderness (L), CVA Tenderness (R) Extremities: Normal Inspection, No Pedal Edema Neurological: Alert, Oriented, Normal Cognition Psychiatric: Normal Affect, Normal Mood Skin Exam: Warm, Dry, Intact, Normal Color, No Rash Course - Vital Signs Last Recorded V/S: Last Vital Signs Temp 96.9 F 07/06/17 05:33 Pulse 82 07/06/17 05:33 Resp 16 07/06/17 05:33 BP 121/76 07/06/17 05:33 Pulse Ox 90 L 07/06/17 05:33 - Orders/Labs/Meds Meds: Medications Discontinued Medications Generic Name Dose Route Start Last Admin Trade Name Freq PRN Reason Stop Dose Admin Al Hydroxide/Mg Hydroxide 45 ml 07/06/17 05:26 07/06/17 05:51 Gi Cocktail PO 07/06/17 05:27 45 ml ONETIME ONE Administration Al Hydroxide/Mg Hydroxide Confirm 07/06/17 05:29 07/06/17 05:52 Gi Cocktail Administered 07/06/17 05:30 Not Given Dose 50 ml .ROUTE .STK-MED ONE Ondansetron HCl 4 mg 07/06/17 05:26 07/06/17 05:52 Zofran Odt PO 07/06/17 05:27 4 mg ONETIME ONE Administration Ondansetron HCl Confirm 07/06/17 05:28 07/06/17 05:52 Zofran Odt Administered 07/06/17 05:29 Not Given Dose 4 mg .ROUTE .STK-MED ONE - Re-Assessments/Exams Free Text/Narrative Re-Assessment/Exam: 07/06/17 06:40 PT AFEBRILE, NONTOXIC APPEARING, VSS, NO DISCOMFORT. WHEN SUGGESTED DISCHARGE ASKED TO BE ADMITTED FOR ONE NIGHT. DISCUSSED IN DEPTH TO HIM AND THAT HE WOULD BE ABLE TO GO HOME WITH MEDICATION AND F/U WITH DR CHRISTENSEN IN 2 DAYS. NO VOMITING WHILE IN ER. Departure - Departure Time of Disposition: 06:49 Disposition: Home, Self-Care 01 Condition: Good Clinical Impression: Chronic GERD Acid reflux Qualifiers: Esophagitis presence: esophagitis presence not specified Qualified Code(s): K21.9 - Gastro-esophageal reflux disease without esophagitis - Discharge Information Instructions: Gastroesophageal Reflux Disease, Adult Referrals: Aida Duncan MD [Physician] - Forms: ED Department Discharge Additional Instructions: CALL [facility] FOR APPOINTMENT IN NEXT 2 DAYS. RETURN TO ER SOONER IF SYMPTOMS CONTINUE - Assessment/Plan Assessment:: GERD Plan: F/U WITH DR RICHMOND
[2017-07-06] MEDS ORDERED: Metoclopramide 10 MG Tab PO ONE (06:46)
== END 2017-07-06 07:30 | disposition home or self-care (01) ==
LOC: KA.ED 05:14
DX: K21.9 Gastro-esophageal reflux disease without esophagitis (principal); I10 Essential (primary) hypertension; M19.90 Unspecified osteoarthritis, unspecified site; Z90.49 Acquired absence of other specified parts of digestive tract; Z88.1 Allergy status to other antibiotic agents; Z79.899 Other long term (current) drug therapy
CPT/HCPCS: 96372; 99283; A9270; J2765; 99284

== ENCOUNTER 2017-08-28 16:44 | Emergency (ER) | payer MEDICAID, MEDICARE, OTHER ==
[2017-08-28 17:04] VITALS: BP 115/82
[2017-08-28] MEDS ORDERED: Sodium Chloride 0.9% 1,000 ML IV ONE (17:50)
[2017-08-28] MEDS ORDERED: Ondansetron 4 MG/2 ML SDV IVPUSH ONE (17:51)
[2017-08-28 18:21] LABS: CHLORIDE,CL 104 mmol/L (98-115); SODIUM,NA 144 mmol/L (136-145)
[2017-08-28] MEDS ORDERED: Ketorolac 30 MG/ML SDV IVPUSH ONE (18:31)
--- NOTE | 2017-08-28 18:59 | EDM.PDOC ---
ED HPI GENERAL MEDICAL PROBLEM - General Chief Complaint: Gastrointestinal Problem Stated Complaint: STOMACHE..THROWING UP Time Seen by Provider: 08/28/17 17:10 Source of Information: Reports: Patient, Family () - History of Present Illness INITIAL COMMENTS - FREE TEXT/NARRATIVE: 72-year-old male presents to emergency room with complaints of nausea and vomiting. Patient states that he began feeling nauseated yesterday. He's had difficulty keeping food down. He feels that he is dehydrated. He notices some abdominal pain. Pain is not sharp but more achy. He denies any fevers or chills , diarrhea. He has no shortness of breath or chest pain complaints. Has had a long history of difficulty with his family in the past. He is brought in by EMS today for evaluation. His accompanies him. Onset: Gradual Duration: Day(s):, Recurring Location: Reports: Abdomen Quality: Reports: Ache Severity: Moderate Improves with: Reports: None Worsens with: Reports: None Associated Symptoms: Reports: Nausea/Vomiting. Denies: Chest Pain, Fever/Chills Treatments CHARGING PLUG PLACER: Reports: Other (see below) Other Treatments CHARGING PLUG PLACER: nausea medicine Abdominal Pain Score (Numeric/FACES): 5 - Related Data Allergies Allergy/AdvReac Type Severity Reaction Status Date / Time amoxicillin [Amoxicillin] Allergy Nausea Verified 06/02/17 06:00 erythromycin base Allergy Nausea Verified 06/02/17 06:00 Home Meds: Home Meds Losartan/Hydrochlorothiazide [Losartan-HCTZ 100-12.5 MG] 1 tab PO DAILY [History] Metoprolol Succinate [Toprol XL] 25 mg PO DAILY 01/12/16 [History] Ranitidine HCl [Ranitidine] 150 mg PO BID 01/12/16 [History] Celecoxib [CeleBREX] 200 mg PO DAILY cap 06/04/17 [Rx] Pantoprazole [ProTONIX] 40 mg PO BIDAC 30 Days tab.cr 06/04/17 [Rx] Celecoxib 100 mg PO BEDTIME 08/28/17 [History] Ondansetron HCl [Zofran] 4 mg PO Q6H PRN 08/28/17 [History] Past Medical History HEENT History: Reports: Hard of Hearing, Impaired Vision Cardiovascular History: Reports: Hypertension Respiratory History: Reports: None Gastrointestinal History: Reports: Gastritis, GERD, Other (See Below) Other Gastrointestinal History: large abdominal hernia Genitourinary History: Reports: Urinary Incontinence Musculoskeletal History: Reports: Arthritis Neurological History: Reports: Brain Injury Psychiatric History: Reports: Developmental Delay - Infectious Disease History Infectious Disease History: Reports: Chicken Pox - Past Surgical History GI Surgical History: Reports: Cholecystectomy Musculoskeletal Surgical History: Reports: Other (See Below) Other Musculoskeletal Surgeries/Procedures:: lef fracture Social & Family History - Tobacco Use Smoking Status *Q: Never Smoker Second Hand Smoke Exposure: No - Caffeine Use Caffeine Use: Reports: None - Alcohol Use Days Per Week of Alcohol Use: 0 - Recreational Drug Use Recreational Drug Use: No Drug Use in Last 12 Months: No - Living Situation & Occupation Occupation: Retired ED ROS GENERAL - Review of Systems Review Of Systems: See Below Constitutional: Denies: Fever, Chills, Diaphoresis HEENT: Reports: No Symptoms Respiratory: Reports: No Symptoms Cardiovascular: Reports: No Symptoms Endocrine: Reports: No Symptoms GI/Abdominal: Reports: Abdominal Pain, Decreased Appetite, Nausea, Vomiting. Denies: Diarrhea, Hematemesis, Stool Incontinence : Denies: Hematuria Skin: Denies: Cyanosis, Diaphoresis Neurological: Denies: Confusion, Headache Psychiatric: Reports: Anxiety. Denies: Agitation Hematologic/Lymphatic: Reports: No Symptoms Immunologic: Reports: No Symptoms ED EXAM, GI/ABD - Physical Exam Exam: See Below Exam Limited By: No Limitations General Appearance: Alert, No Apparent Distress, Obese Eyes: Bilateral: EOMI Ears: Hearing Grossly Normal Nose: Normal Inspection Throat/Mouth: Normal Voice, No Airway Compromise Head: Atraumatic, Normocephalic Neck: Supple Respiratory/Chest: No Respiratory Distress, Lungs Clear Cardiovascular: Regular Rate, Rhythm GI/Abdominal Exam: Soft, Other (abdominal obesity. prior surgical scar) Extremities: Normal Inspection Neurological: Alert, Oriented, No Motor/Sensory Deficits Psychiatric: Normal Mood, Flat Affect Skin Exam: Warm, Dry, Intact, Normal Color, No Rash Lymphatic: No Adenopathy Course - Vital Signs Last Recorded V/S: Last Vital Signs Temp 97.9 F 08/28/17 17:00 Pulse 99 08/28/17 17:00 Resp 18 08/28/17 17:00 BP 115/82 08/28/17 17:00 Pulse Ox 95 08/28/17 17:00 - Orders/Labs/Meds Labs: Laboratory Tests 08/28/17 08/28/17 Range/Units 17:50 17:50 WBC 6.1 (5.0-10.0) 10^3/uL RBC 5.71 (4.50-6.00) 10^6/uL Hgb 17.0 (13.0-17.0) g/dL Hct 52.1 H (40.0-52.0) % MCV 91.3 (82.0-92.0) fL MCH 29.7 (27.0-31.0) pg MCHC 32.5 (32.0-36.0) g/dL RDW 13.0 (11.5-14.5) % Plt Count 191 (150-300) 10^3/uL MPV 8.1 (7.4-10.4) fL Neut % (Auto) 81.3 H (50.0-70.0) % Lymph % (Auto) 7.0 L (20.0-40.0) % [place] % (Auto) 10.2 H (2.0-8.0) % Eos % (Auto) 0.5 L (1.0-3.0) % Baso % (Auto) 1.0 (0.0-1.0) % Neut # (Auto) 5.0 (2.5-7.0) 10^3/uL Lymph # (Auto) 0.4 L (1.0-4.0) 10^3/uL [place] # (Auto) 0.6 (0.1-0.8) 10^3/uL Eos # (Auto) 0.0 L (0.1-0.3) 10^3/uL Baso # (Auto) 0.1 (0.0-0.1) 10^3/uL Sodium 144 (136-145) mmol/L Potassium 3.9 (3.3-5.3) mmol/L Chloride 104 (98-115) mmol/L Carbon Dioxide 30.8 (21.0-32.0) mmol/L BUN 16 (6-25) mg/dL Creatinine 0.87 (0.51-1.17) mg/dL Est Cr Clr Drug Dosing 82.95 mL/min Estimated GFR (MDRD) > 60 mL/min Glucose 122 H (70-110) mg/dL Calcium 8.8 (8.7-10.3) mg/dL Meds: Medications Discontinued Medications Generic Name Dose Route Start Last Admin Trade Name Amaury PRN Reason Stop Dose Admin Sodium Chloride 1,000 mls @ 999 mls/hr 08/28/17 17:50 08/28/17 18:05 Normal Saline IV 08/28/17 18:50 999 mls/hr .BOLUS ONE Administration Ketorolac Tromethamine 30 mg 08/28/17 18:31 08/28/17 18:38 Toradol IVPUSH 08/28/17 18:32 30 mg ONETIME ONE Administration Ondansetron HCl 8 mg 08/28/17 17:51 08/28/17 18:04 Zofran IVPUSH 08/28/17 17:52 8 mg ONETIME ONE Administration - Re-Assessments/Exams Free Text/Narrative Re-Assessment/Exam: 08/28/17 19:06 1 L normal saline was given through IV needle Zofran 8 mg IV Toradol 30 mg IV Departure - Departure Time of Disposition: 19:45 Disposition: Home, Self-Care 01 Condition: Fair Clinical Impression: Abdominal pain Vomiting Qualifiers: Vomiting Intractability: non-intractable Nausea presence: with nausea - Discharge Information Instructions: Dehydration, Adult, [id number], Abdominal Pain, Adult, Easy-to- Read, Nausea and Vomiting, Adult, [id number] Referrals: Aida Duncan MD [Primary Care Provider] - - Assessment/Plan Assessment:: 1. Vomiting with nausea 2. Mild dehydration 3. Chronic abdominal pain Plan: 1. Patient is given 1 L IV fluids for rehydration he had improvement of his nausea with Zofran. Toradol was given. Lab work was reviewed CBC and metabolic panel were normal. He was given some toast and was able to keep this down. His pain nausea were improved. 2. patient was discharged home encouraged to continue with oral hydration and bland diet. 3. Patient is instructed to follow-up with primary care is medically symptoms persist this week.
[2017-08-28] MEDS ORDERED: Ondansetron 4 MG Tab.DIS ONE (19:31)
[2017-08-28] MEDS ORDERED: Ondansetron 4 MG Tab.DIS PO PRN (19:32)
== END 2017-08-28 19:45 | disposition home or self-care (01) ==
LOC: KA.ED 16:44
DX: R11.2 Nausea with vomiting, unspecified (principal); R10.9 Unspecified abdominal pain; G89.29 Other chronic pain; E86.0 Dehydration; I10 Essential (primary) hypertension; K21.9 Gastro-esophageal reflux disease without esophagitis; Z90.49 Acquired absence of other specified parts of digestive tract; Z79.899 Other long term (current) drug therapy; Z88.1 Allergy status to other antibiotic agents
CPT/HCPCS: 80048; 85025; 96361; 96374; 96375; 99284; A9270; J1885; J2405; J7030

== ENCOUNTER 2017-08-29 12:27 | Emergency (ER) | payer MEDICAID, MEDICARE, OTHER ==
[2017-08-29 13:09] VITALS: BP 97/58
[2017-08-29] MEDS ORDERED: Ondansetron 4 MG/2 ML SDV IVPUSH PRN (13:18)
[2017-08-29] MEDS ORDERED: Sodium Chloride 0.9% 1,000 ML IV ONE (13:18)
[2017-08-29 13:36] LABS: CHLORIDE,CL 105 mmol/L (98-115); SODIUM,NA 144 mmol/L (136-145)
--- NOTE | 2017-08-29 13:37 | EDM.PDOC ---
ED HPI GENERAL MEDICAL PROBLEM - General Chief Complaint: General Stated Complaint: abdominal pain Time Seen by Provider: 08/29/17 13:00 Source of Information: Reports: Patient History Limitations: Reports: No Limitations - History of Present Illness INITIAL COMMENTS - FREE TEXT/NARRATIVE: 72 YO WM presents to ER complaining of generalized abdominal pain with nausea/ vomiting and weakness x 2 days. Pt was seen in ER yesterday for same complaint but states his symptoms have failed to improve and now he's unable to eat and feels weak/malaise. Pt has had previous hospitalization (Jun 2017) for the same - dehydration/gastroenteritis. Pt denies fever/chills, denies diarrhea but has been constipated last 24 hours. Onset Date: 08/27/17 Duration: Day(s): (2) Location: Reports: Abdomen Quality: Reports: Ache Severity: Mild Improves with: Reports: None Worsens with: Reports: None Associated Symptoms: Reports: Malaise, Weakness. Denies: Chest Pain, Fever/ Chills, Nausea/Vomiting, Rash, Shortness of Breath Left Abdomen Pain Score (Numeric/FACES): 2 - Related Data Allergies Allergy/AdvReac Type Severity Reaction Status Date / Time amoxicillin [Amoxicillin] Allergy Nausea Verified 08/29/17 12:38 erythromycin base Allergy Nausea Verified 08/29/17 12:38 Home Meds: Home Meds Losartan/Hydrochlorothiazide [Losartan-HCTZ 100-12.5 MG] 1 tab PO DAILY [History] Metoprolol Succinate [Toprol XL] 25 mg PO DAILY 01/12/16 [History] Ranitidine HCl [Ranitidine] 150 mg PO BID 01/12/16 [History] Celecoxib [CeleBREX] 200 mg PO DAILY cap 06/04/17 [Rx] Pantoprazole [ProTONIX] 40 mg PO BIDAC 30 Days tab.cr 06/04/17 [Rx] Celecoxib 100 mg PO BEDTIME 08/28/17 [History] Ondansetron HCl [Zofran] 4 mg PO Q6H PRN 08/28/17 [History] Sucralfate [Carafate] 1 gm PO Q6H #120 ml 08/29/17 [Rx] Past Medical History HEENT History: Reports: Hard of Hearing, Impaired Vision Cardiovascular History: Reports: Hypertension Respiratory History: Reports: None Gastrointestinal History: Reports: Gastritis, GERD, Other (See Below) Other Gastrointestinal History: large abdominal hernia Genitourinary History: Reports: Urinary Incontinence Musculoskeletal History: Reports: Arthritis Neurological History: Reports: Brain Injury Psychiatric History: Reports: Developmental Delay - Infectious Disease History Infectious Disease History: Reports: Chicken Pox - Past Surgical History GI Surgical History: Reports: Cholecystectomy Musculoskeletal Surgical History: Reports: Other (See Below) Other Musculoskeletal Surgeries/Procedures:: lef fracture Social & Family History - Tobacco Use Smoking Status *Q: Never Smoker Second Hand Smoke Exposure: No - Caffeine Use Caffeine Use: Reports: None - Alcohol Use Days Per Week of Alcohol Use: 0 - Recreational Drug Use Recreational Drug Use: No Drug Use in Last 12 Months: No - Living Situation & Occupation Occupation: Retired ED ROS GENERAL - Review of Systems Review Of Systems: See Below Constitutional: Reports: No Symptoms HEENT: Reports: No Symptoms Respiratory: Reports: No Symptoms Cardiovascular: Reports: No Symptoms Endocrine: Reports: No Symptoms GI/Abdominal: Reports: Abdominal Pain, Constipation, Nausea : Reports: No Symptoms Musculoskeletal: Reports: No Symptoms Skin: Reports: No Symptoms Neurological: Reports: No Symptoms Psychiatric: Reports: No Symptoms Hematologic/Lymphatic: Reports: No Symptoms Immunologic: Reports: No Symptoms ED EXAM, GENERAL - Physical Exam Exam: See Below Exam Limited By: No Limitations General Appearance: Alert, WD/WN, No Apparent Distress Ears: Normal External Exam, Normal Canal, Hearing Grossly Normal, Normal TMs Nose: Normal Inspection, Normal Mucosa, No Blood Throat/Mouth: Normal Inspection, Normal Lips, Normal Teeth, Normal Gums, Normal Oropharynx, Normal Voice, No Airway Compromise Head: Atraumatic, Normocephalic Neck: Normal Inspection, Supple, Non-Tender, Full Range of Motion Respiratory/Chest: No Respiratory Distress, Lungs Clear, Normal Breath Sounds, No Accessory Muscle Use, Chest Non-Tender Cardiovascular: Normal Peripheral Pulses, Regular Rate, Rhythm, No Edema, No Gallop, No JVD, No Murmur, No Rub GI/Abdominal: Normal Bowel Sounds, Soft, No Organomegaly, No Abnormal Bruit, No Mass, Tender (llq), Mass. No: Non-Tender Back Exam: Normal Inspection, Full Range of Motion, NT Extremities: Normal Inspection, Normal Range of Motion, Non-Tender, Normal Capillary Refill, No Pedal Edema Neurological: Alert, Oriented, CN II-XII Intact, Normal Cognition, Normal Gait, Normal Reflexes, No Motor/Sensory Deficits Psychiatric: Normal Affect, Normal Mood Skin Exam: Warm, Dry, Intact, Normal Color, No Rash Lymphatic: No Adenopathy Course - Vital Signs Last Recorded V/S: Last Vital Signs Temp 36.1 C 08/29/17 12:36 Pulse 82 08/29/17 12:36 Resp 19 08/29/17 12:36 BP 97/58 L 08/29/17 12:36 Pulse Ox 91 L 08/29/17 12:36 - Orders/Labs/Meds Orders: Active Orders 24 hr Category Date Time Status Abdomen Pelvis w Cont [CT] Stat Exams 08/29/17 13:17 Taken UA W/MICROSCOPIC [URIN] Stat Lab 08/29/17 12:58 Uncollected GI Cocktail Med 08/29/17 15:39 Once 45 ml PO ONETIME ONE Ondansetron [Zofran] Med 08/29/17 13:18 Active 4 mg IVPUSH Q4H PRN Sodium Chloride 0.9% [Normal Saline] Med 08/29/17 14:00 Active 50 ml FLUSH ASDIRECTED Medication Orders Ondansetron HCl (Zofran) 4 mg IVPUSH Q4H PRN PRN Reason: Nausea/Vomiting Last Admin: 08/29/17 13:47 Dose: 4 mg Sodium Chloride (Normal Saline) 50 ml FLUSH ASDIRECTED PATIENCE Last Admin: 08/29/17 14:03 Dose: 50 ml Labs: Laboratory Tests 08/29/17 08/29/17 08/29/17 Range/Units 12:57 12:57 12:57 WBC 4.0 L (5.0-10.0) 10^3/uL RBC 5.51 (4.50-6.00) 10^6/uL Hgb 16.4 (13.0-17.0) g/dL Hct 50.3 (40.0-52.0) % MCV 91.2 (82.0-92.0) fL MCH 29.7 (27.0-31.0) pg MCHC 32.6 (32.0-36.0) g/dL RDW 12.9 (11.5-14.5) % Plt Count 179 (150-300) 10^3/uL MPV 8.1 (7.4-10.4) fL Neut % (Auto) 69.0 (50.0-70.0) % Lymph % (Auto) 10.1 L (20.0-40.0) % [place] % (Auto) 18.4 H (2.0-8.0) % Eos % (Auto) 2.5 (1.0-3.0) % Baso % (Auto) 0.0 (0.0-1.0) % Neut # (Auto) 2.8 (2.5-7.0) 10^3/uL Lymph # (Auto) 0.4 L (1.0-4.0) 10^3/uL [place] # (Auto) 0.7 (0.1-0.8) 10^3/uL Eos # (Auto) 0.1 (0.1-0.3) 10^3/uL Baso # (Auto) 0.0 (0.0-0.1) 10^3/uL Sodium 144 (136-145) mmol/L Potassium 3.6 (3.3-5.3) mmol/L Chloride 105 (98-115) mmol/L Carbon Dioxide 31.3 (21.0-32.0) mmol/L BUN 16 (6-25) mg/dL Creatinine 0.99 (0.51-1.17) mg/dL Est Cr Clr Drug Dosing 72.89 mL/min Estimated GFR (MDRD) > 60 mL/min Glucose 120 H (70-110) mg/dL Calcium 8.6 L (8.7-10.3) mg/dL Total Bilirubin 1.9 H (0.2-1.0) mg/dL AST 15 (15-37) U/L ALT 19 (12-78) U/L Alkaline Phosphatase 57 (46-116) IU/L Total Protein 6.5 (6.4-8.2) g/dL Albumin 3.09 (3.00-4.80) g/dL Lipase 50 L (73-393) U/L Meds: Medications Generic Name Dose Route Start Last Admin Trade Name Freq PRN Reason Stop Dose Admin Ondansetron HCl 4 mg 08/29/17 13:18 08/29/17 13:47 Zofran IVPUSH 4 mg Q4H PRN Administration Nausea/Vomiting Sodium Chloride 50 ml 08/29/17 14:00 08/29/17 14:03 Normal Saline FLUSH 50 ml ASDIRECTED PATIENCE Administration Discontinued Medications Generic Name Dose Route Start Last Admin Trade Name Amaury PRN Reason Stop Dose Admin Sodium Chloride 1,000 mls @ 999 mls/hr 08/29/17 13:18 08/29/17 13:46 Normal Saline IV 08/29/17 14:18 999 mls/hr .BOLUS ONE Administration Iopamidol 75 ml 08/29/17 13:52 08/29/17 14:02 Isovue-300 (61%) IV 08/29/17 13:53 75 ml ONETIME ONE Administration - Radiology Interpretation Free Text/Narrative:: CT abd/pelvis- large right sided ventral hernia without evidence of obstruction Departure - Departure Time of Disposition: 15:42 Disposition: Home, Self-Care 01 Condition: Good Clinical Impression: Abdominal pain, Gastroenteritis - Discharge Information Prescriptions: Sucralfate [Carafate] 1 gm PO Q6H #120 ml Instructions: Rehydration, Elderly, Viral Gastroenteritis, Adult Referrals: Aida Duncan MD [Primary Care Provider] - Forms: ED Department Discharge - My Orders Last 24 Hours: My Active Orders 08/29/17 12:58 UA W/MICROSCOPIC [URIN] Stat 08/29/17 13:17 Abdomen Pelvis w Cont [CT] Stat 08/29/17 13:18 Ondansetron [Zofran] 4 mg IVPUSH Q4H PRN 08/29/17 14:00 Sodium Chloride 0.9% [Normal Saline] 50 ml FLUSH ASDIRECTED 08/29/17 15:39 GI Cocktail 45 ml PO ONETIME ONE - Assessment/Plan Last 24 Hours: My Active Orders 08/29/17 12:58 UA W/MICROSCOPIC [URIN] Stat 08/29/17 13:17 Abdomen Pelvis w Cont [CT] Stat 08/29/17 13:18 Ondansetron [Zofran] 4 mg IVPUSH Q4H PRN 08/29/17 14:00 Sodium Chloride 0.9% [Normal Saline] 50 ml FLUSH ASDIRECTED 08/29/17 15:39 GI Cocktail 45 ml PO ONETIME ONE Assessment:: 1. abdominal pain 2. viral gastroenteritis Plan: 1. start zofran ODT as prescribed yesterday 2. plenty of fluids 3. continue current home medications 4. start carafate 1g PO 5. follow up in clinic next 2 days for recheck 6. return to ER for wrosening symptoms
[2017-08-29] MEDS ORDERED: Iopamidol 612 MG/ML 75 ML Bottle IV ONE (13:52)
[2017-08-29] MEDS ORDERED: Sodium Chloride 0.9% 50 ML SDV FLUSH SCH (14:00)
[2017-08-29] MEDS ORDERED: GI Cocktail 45 ML BOTTLE PO ONE (15:39)
== END 2017-08-29 16:00 | disposition home or self-care (01) ==
LOC: KA.ED 12:27
DX: K52.9 Noninfective gastroenteritis and colitis, unspecified (principal); I10 Essential (primary) hypertension; K21.9 Gastro-esophageal reflux disease without esophagitis; Z90.49 Acquired absence of other specified parts of digestive tract; Z79.899 Other long term (current) drug therapy; Z88.1 Allergy status to other antibiotic agents
CPT/HCPCS: 74177; 80053; 81001; 83690; 85025; 96361; 96374; 99284; A9270; J2405; J7030; Q9967